=== PATIENT | female | born 2000 | race Caucasian/White ===

== ENCOUNTER 2021-10-13 23:57 | Inpatient (IN) ==
[2021-10-14] MEDS ORDERED: BUTORPHANOL 2 MG/ML VIAL IV PRN (00:04)
[2021-10-14] MEDS ORDERED: METHYLERGONOVINE 0.2 MG/1 ML AMP IM PRN (00:04)
[2021-10-14] MEDS ORDERED: TRANEXAMIC ACID 1,000 MG in SODIUM CHLORIDE 0.9% 100 ML IV PRN (00:04)
[2021-10-14] MEDS ORDERED: ONDANSETRON 4 MG/2 ML VIAL IV PRN ×2 (00:04→17:26)
[2021-10-14] MEDS ORDERED: OXYTOCIN/LR 20 UNIT/1,000 ML BAG IV ONE ×2 (00:04→17:26)
[2021-10-14] MEDS ORDERED: MEPERIDINE 50 MG/1 ML VIAL IV PRN (00:04)
[2021-10-14] MEDS ORDERED: CARBOPROST TROMETHAMINE 250 MCG/ML AMP IM PRN (00:04)
[2021-10-14] MEDS ORDERED: miSOPROStoL 200 MCG TABLET RECTAL PRN (00:04)
[2021-10-14 00:36] LABS: Basophils % 0.2 % (0.0-0.8); Eosinophils # 0.3 10*3/uL (0.0-0.87); Eosinophils % 1.8 % (0.00-10.9); Hematocrit 35.8 VOL% (35.7-47.0); Hemoglobin 11.7 GM/DL (12.0-16.0); Immature Granulocytes % 0.6 %; Immature Granulocytes Absolute 0.09 #; Lymphocytes # 2.4 10*3/uL (1.4-4.0); Lymphocytes % 15.4 % (21.3-54.2); Mean Corpuscular HGB Conc 32.7 GM/DL (32-36); Mean Corpuscular Volume 87.7 FL (87-102); Mean Platelet Volume 10.4 FL (9.6-12.0); Monocytes # 0.9 10*3/uL (0.11-0.8); Monocytes % 5.6 % (1.7-12.7); Neutrophils % 76.4 % (38.7-73.9); Platelet Count 285 T/CUMM (130-400); Red Blood Count 4.08 MC/CUMM (3.8-5.5); Red Cell Distribution Width 14.6 % (9.3-17.3); White Blood Count 15.8 T/CUMM (4-12)
[2021-10-14] MEDS: LACTATED RINGERS 1,000 ML IV SCH ×2 (05:23→08:04)
[2021-10-14] MEDS ORDERED: NALOXONE 0.4 MG/ML VIAL IV PRN (07:18)
[2021-10-14] MEDS ORDERED: ePHEDrine 50 MG/ML VIAL IV PRN (07:18)
[2021-10-14] MEDS ORDERED: FAMOTIDINE 20 MG/2 ML VIAL IV ONE ×2 (07:18→07:22)
[2021-10-14] MEDS ORDERED: PROMETHAZINE 25 MG/1 ML VIAL IM ONE (07:18)
[2021-10-14] MEDS ORDERED: hydrOXYzine HCL 25 MG/1 ML VIAL IM PRN (07:18)
[2021-10-14] MEDS ORDERED: diphenhydrAMINE 50 MG/1 ML VIAL IV PRN ×2 (07:18)
[2021-10-14] MEDS ORDERED: ONDANSETRON 4 MG/2 ML VIAL IV ONE (07:18)
[2021-10-14] MEDS ORDERED: CITRIC ACID/SODIUM CITRATE 30 ML UDCUP PO ONE (07:18)
[2021-10-14] MEDS ORDERED: LACTATED RINGERS 1,000 ML IV ONE (07:18)
[2021-10-14] MEDS ORDERED: CITRIC ACID/SODIUM CITRATE 30 ML UDCUP ONE (07:21)
[2021-10-14] MEDS ORDERED: ePHEDrine 50 MG/ML VIAL ONE (07:22)
[2021-10-14] MEDS ORDERED: fentaNYL 2 MCG/ROPIV 0.2% EPID 100 ML EPIDURAL ONE (07:22)
[2021-10-14] MEDS ORDERED: LACTATED RINGERS 1,000 ML IV SCH ×3 (07:30→17:30)
[2021-10-14] MEDS ORDERED: fentaNYL 2 MCG/ROPIV 0.2% EPID 100 ML EPIDURAL SCH (07:30)
[2021-10-14 08:58] LABS: Squamous Epithelial Cell,Urine Occasional /HPF (0-10)
[2021-10-14 08:59] LABS: Bilirubin,Urine Negative (Negative); Blood, Urine Negative (Negative); Glucose,Urine (UA) Negative (Negative); Ketones,Urine Negative (Negative); Nitrite,Urine Negative (Negative); Protein,Urine Negative (Negative); Urine Appearance Clear (Clear); Urine Color Yellow (Yellow); Urine Specific Gravity 1.015 (1.001-1.035); Urine Urobilinogen 0.2 eU/dL (<2.0)
[2021-10-14] MEDS ORDERED: OXYTOCIN/LR 20 UNIT/1,000 ML BAG IV SCH (10:00)
[2021-10-14] MEDS ORDERED: ACETAMINOPHEN 500 MG TABLET PO ONE (12:36)
[2021-10-14] MEDS ORDERED: TERBUTALINE 1 MG/1 ML VIAL ONE (13:36)
[2021-10-14] MEDS: TERBUTALINE 1 MG/1 ML VIAL SUBCUT PRN ×2 (13:40→15:59)
[2021-10-14] MEDS ORDERED: buprenorphine HCL 0.3 MG/ML VIAL ONE (13:50)
[2021-10-14] MEDS ORDERED: SODIUM CHLORIDE 0.9% 1,000 ML IV ONE (14:00)
[2021-10-14] MEDS ORDERED: OXYTOCIN/LR 30 UNIT/1,000 ML BAG IV ONE (15:00)
[2021-10-14] MEDS ORDERED: OXYTOCIN 10 UNIT/ML VIAL IM ONE (15:56)
[2021-10-14] MEDS ORDERED: ceFAZolin 2,000 MG/50 ML DUPLEX IV ONE (16:00)
[2021-10-14] MEDS ORDERED: ONDANSETRON 4 MG/2 ML VIAL ONE (16:11)
[2021-10-14] MEDS ORDERED: LIDOCAINE MPF 2% /EPI 20 ML VIAL ONE (16:12)
[2021-10-14 17:03] LABS: Cord Arterial Blood HCO3 16.6 MMOL/L
[2021-10-14] MEDS ORDERED: PHENYLEPHRINE 1 MG/10 ML SYRINGE IV ONE (17:04)
[2021-10-14 17:06] LABS: Cord Venous Blood HCO3 18.1 MMOL/L; Cord Venous Blood PCO2 53.5 MMHG; Cord Venous Blood PO2 18.8
[2021-10-14] MEDS ORDERED: KETOROLAC 30 MG/1 ML VIAL ONE (17:09)
[2021-10-14] MEDS ORDERED: ACETAMINOPHEN 325 MG TABLET PO PRN (17:26)
[2021-10-14] MEDS ORDERED: MAGNESIUM HYDROXIDE SUSP 30 ML UDCUP PO PRN (17:26)
[2021-10-14] MEDS ORDERED: RHO(D) IMMUNE GLOBULIN 300 MCG SYRINGE IM ONE (17:26)
[2021-10-14] MEDS ORDERED: SIMETHICONE CHEW 80 MG TABLET PO PRN (17:26)
[2021-10-14] MEDS: HYDROmorphone 1 MG/1 ML SYRINGE IV PRN ×2 (18:27→20:35)
[2021-10-14] MEDS ORDERED: ACETAMINOPHEN 500 MG TABLET PO SCH (21:00)
[2021-10-14] MEDS: DOCUSATE SODIUM 100 MG CAPSULE PO SCH (21:37)
[2021-10-14 22:14] LABS: Hematocrit 31.9 VOL% (35.7-47.0); Hemoglobin 10.5 GM/DL (12.0-16.0)
[2021-10-14] MEDS: ACETAMINOPHEN 500 MG TABLET PO SCH (23:37)
[2021-10-14] MEDS: KETOROLAC 30 MG/1 ML VIAL IV SCH (23:39)
[2021-10-15] MEDS: KETOROLAC 30 MG/1 ML VIAL IV SCH ×2 (04:59→10:48)
[2021-10-15 05:13] LABS: Basophils % 0.3 % (0.0-0.8); Eosinophils # 0.1 10*3/uL (0.0-0.87); Eosinophils % 0.6 % (0.00-10.9); Hematocrit 30.2 VOL% (35.7-47.0); Hemoglobin 9.8 GM/DL (12.0-16.0); Immature Granulocytes % 0.6 %; Immature Granulocytes Absolute 0.08 #; Lymphocytes # 1.8 10*3/uL (1.4-4.0); Mean Corpuscular HGB Conc 32.5 GM/DL (32-36); Mean Corpuscular Volume 87.8 FL (87-102); Mean Platelet Volume 10.6 FL (9.6-12.0); Monocytes # 0.8 10*3/uL (0.11-0.8); Monocytes % 5.7 % (1.7-12.7); Neutrophils % 79.8 % (38.7-73.9); Platelet Count 230 T/CUMM (130-400); Red Blood Count 3.44 MC/CUMM (3.8-5.5); Red Cell Distribution Width 14.6 % (9.3-17.3); White Blood Count 14.2 T/CUMM (4-12)
[2021-10-15] MEDS: ACETAMINOPHEN 500 MG TABLET PO SCH ×2 (07:51→15:41)
[2021-10-15] MEDS: MULTIVITAMIN (PRENATAL) TABLET PO SCH (09:34)
[2021-10-15] MEDS: DOCUSATE SODIUM 100 MG CAPSULE PO SCH ×2 (09:35→20:30)
[2021-10-15] MEDS ORDERED: RHO(D) IMMUNE GLOBULIN 300 MCG SYRINGE IM ONE (18:46)
[2021-10-15] MEDS: METOCLOPRAMIDE 10 MG TABLET PO SCH (20:30)
[2021-10-15] MEDS: IBUPROFEN 800 MG TABLET PO PRN (21:15)
[2021-10-16] MEDS: METOCLOPRAMIDE 10 MG TABLET PO SCH (04:06)
[2021-10-16 07:50] VITALS: BP 110/51
[2021-10-16] MEDS: DOCUSATE SODIUM 100 MG CAPSULE PO SCH (08:19)
[2021-10-16] MEDS: MULTIVITAMIN (PRENATAL) TABLET PO SCH (08:19)
[2021-10-16] MEDS: IBUPROFEN 800 MG TABLET PO PRN (08:20)
[2021-10-16] MEDS ORDERED: DIPH/TET/ACEL PERT BOOSTER VACCINE 0.5 ML VIAL IM ONE (10:31)
== END 2021-10-16 11:47 | disposition home or self-care (01) | DRG 540 ==
LOC: N.LD 23:57 → N.OB 10-14 20:50
PROVIDERS: ADMIT Obstetrics & Gynecology; ATTEND Obstetrics & Gynecology
PROC: LDCSECT (ICD-10-PCS; 2021-10-14 16:00)